=== PATIENT | female | born 1990 | race Caucasian/White ===

== ENCOUNTER → 2016-09-25 | Outpatient (CLI) | payer MEDICARE, OTHER | LOC: US 10:30 | DX: N94.9 Unspecified condition associated with female genital organs and menstrual cycle (principal); N63 Unspecified lump in breast | CPT/HCPCS: 76641-RT; 76856 ==

== ENCOUNTER 2020-08-05 16:17 | Emergency (ER) | payer MEDICARE, OTHER ==
[2020-08-05 18:29] LABS: HEMOGLOBIN 12.6 gm/dl (12.3-15.3); RED BLOOD COUNT 4.23 M/UL (4.00-5.10)
[2020-08-05 18:53] LABS: BUN/CREATININE RATIO 33 (0-10)
[2020-08-05] MEDS ORDERED: FLOMAX 0.4 MG0.4 MG PO (21:25)
[2020-08-05] MEDS ORDERED: ZOFRAN ODT 4 MG4 MG PO (21:25)
[2020-08-05] MEDS ORDERED: NORCO 5-325 TA1 EACH PO (21:25)
[2020-08-05] MEDS ORDERED: IBUPROFEN600 MG PO (21:25)
== END 2020-08-05 21:40 | disposition home or self-care (01) ==
LOC: ER1 16:17
PROVIDERS: Emergency Medicine
DX: N13.2 Hydronephrosis with renal and ureteral calculous obstruction (principal); J44.9 Chronic obstructive pulmonary disease, unspecified; Z87.442 Personal history of urinary calculi; Z87.19 Personal history of other diseases of the digestive system; Z88.0 Allergy status to penicillin; Z88.5 Allergy status to narcotic agent; Z88.1 Allergy status to other antibiotic agents; Z88.8 Allergy status to other drugs, medicaments and biological substances; Z91.040 Latex allergy status
CPT/HCPCS: 80053; 81001; 83690; 84703; 85025; 96374; 96375; 99284; J2270; J2405

== ENCOUNTER → 2021-09-23 | Outpatient (CLI) | payer MEDICARE, OTHER ==
[~2021-09-23] MED LIST: FLOMAX 0.4 MG0.4 MG PO; IBUPROFEN600 MG PO; NORCO 5-325 TA1 EACH PO; ZOFRAN ODT 4 MG4 MG PO
== END ==
LOC: RAD 08:46
DX: R13.10 Dysphagia, unspecified (principal)
CPT/HCPCS: 74221

== ENCOUNTER 2022-04-13 15:41 | Emergency (ER) | payer MEDICARE, OTHER ==
[2022-04-13 17:02] LABS: RED BLOOD COUNT 3.7 M/UL (4.00-5.10); WHITE BLOOD COUNT 5.5 K/UL (4.5-11.0)
[2022-04-13 17:29] LABS: BUN/CREATININE RATIO 18 (0-10)
== END 2022-04-13 19:10 | disposition home or self-care (01) ==
LOC: ER1 15:41
PROVIDERS: Family Medicine
DX: B34.9 Viral infection, unspecified (principal); Z20.822 Contact with and (suspected) exposure to COVID-19
CPT/HCPCS: 71046; 80053; 81001; 82550; 82553; 83605; 84484; 85025; 87040; 87081; 87086; 87880; 99283; U0002